=== PATIENT | female | born 1990 | race Two or more races ===

== ENCOUNTER 2018-03-20 16:17 | Emergency (ER) | payer OTHER ==
[~2018-03-20] VITALS: Ht 165.1 cm; Wt 143.3 kg
[2018-03-20] MEDS ORDERED: PRENATAL + DHA1 EAC1 (16:29)
== END 2018-03-20 19:25 | disposition home or self-care (01) ==
LOC: ER 16:17
DX: O20.8 Other hemorrhage in early pregnancy (principal); Z34.81 Encounter for supervision of other normal pregnancy, first trimester